=== PATIENT | male | born 1960 | race Caucasian/White ===

== ENCOUNTER 2017-03-06 21:45 | Emergency (ER) | payer OTHER ==
[~2017-03-06] VITALS: Ht 167.6 cm; Wt 113.0 kg
[~2017-03-06 21:45] MED LIST: AMBIEN5 MG PO; ASPIR 8181 M1 PO; CHOLESTEROL MED PO; COREG25 M1 PO; COUMADIN5 MG PO; COZAAR25 MG PO; COZAAR50 MG PO; FUROSEMIDE20 MG PO; GLIPIZIDE10 MG PO; LANTUS 10100 UNITS/ SC; LASIX40 MG PO; LIPITOR80 MG PO; LISINOPRIL40 MG PO; METFORMIN HCL1000 MG PO; METHOCARBAMOL750 MG PO; Muscle Relaxer PO; NEURONTIN100 MG PO; NITROSTAT0.4 MG SL; SIMVASTATIN10 MG PO; SPIRONOLACTONE25 MG PO; TYLENOL REGULA325 MG PO; XALATAN2.5 ML BOTH EYES
[2017-03-06 22:52] LABS: EOSINOPHIL (%) 0 % (0-5); HEMATOCRIT 31.2 % (38.0-50.0); IMMATURE GRANULOCYTE (%) 1.7 % (0.0-0.7); IMMATURE GRANULOCYTE COUNT 0.2 K/uL; INSTRUMENT ABS NEUTROPHIL CT 9.3 K/uL; LYMPHOCYTE COUNT 0.4 K/uL (1.0-2.8); MCH 29.8 PG (29.0-34.0); MCHC 30.4 G/DL (30.0-36.0); MCV 97.8 FL (86-99); MEAN PLAT.VOLUME 10.5 uM^3 (9.0-12.4); MONOCYTE (%) 4.1 % (3-12); MONOCYTE COUNT 0.4 K/uL (0-0.8); NEUTROPHIL (%) 89.8 % (45-76); NEUTROPHIL COUNT 9.3 K/uL (1.8-6.4); NRBC (%) 0.2 /100 WBC (0-0); PLATELET COUNT 405 K/uL (156-360); RBC DIS.WIDTH-CV 18.6 % (11.8-14.6); RBC DIS.WIDTH-SD 66.4 % (39-53); RED BLOOD COUNT 3.19 M/uL (4.00-5.50); WHITE BLOOD COUNT 10.3 K/uL (4.1-10.2)
[2017-03-06 23:01] LABS: CHLORIDE 104 mEq/L (99-109); POTASSIUM 5.7 mEq/L (3.7-5.4); SODIUM 135 mEq/L (136-147)
[2017-03-06 23:03] LABS: GLUCOSE 305 mg/dL (70-99)
[2017-03-06 23:04] LABS: ANION GAP 8 MEQ/L (2-14)
[2017-03-06 23:07] LABS: GFR ESTIMATE (CALCULATED) 39 mL/min/; UREA NITROGEN (BUN) 36 mg/dL (9-23)
[2017-03-06 23:12] LABS: TROP-I INTERPRETATION NEGATIVE; TROPONIN-I 0.06 ng/mL (0.0-0.30)
[2017-03-06 23:41] LABS: INTER. NORMALIZED RATIO 1.1; PROTHROMBIN TIME 11.7 SEC (10.2-12.9)
[2017-03-06 23:44] LABS: PTT 25.6 SEC (25-37)
[2017-03-07] MEDS ORDERED: PREDNISONE5 MG PO (00:32)
[2017-03-07] MEDS ORDERED: PROGRAF1 MG PO (00:32)
[2017-03-07] MEDS ORDERED: CELLCEPT250 MG PO (00:33)
[2017-03-07] MEDS ORDERED: DAPSONE100 MG PO (00:34)
[2017-03-07] MEDS ORDERED: VALCYTE450 MG PO (00:35)
[2017-03-07] MEDS ORDERED: UROMAG84.5 MG PO (00:36)
[2017-03-07] MEDS ORDERED: CALCIUM +D & M1 EACH PO (00:36)
[2017-03-07] MEDS ORDERED: PRAVASTATIN SOD80 MG PO (00:36)
[2017-03-07] MEDS ORDERED: APRESOLINE100 MG PO (00:37)
[2017-03-07] MEDS ORDERED: DOCUSIL100 MG PO (00:37)
[2017-03-07] MEDS ORDERED: IMDUR60 MG PO (00:38)
[2017-03-07] MEDS ORDERED: IMDUR30 MG PO (00:38)
[2017-03-07] MEDS ORDERED: MYCOSTATIN15 GM PO (00:38)
[2017-03-07] MEDS ORDERED: ACID REDUCER 1150 MG PO (00:39)
[2017-03-07] MEDS ORDERED: BASAGLAR K100 UNIT/1 SC (00:40)
[2017-03-07] MEDS ORDERED: APIDRA SOL100 UNIT/1 SC (00:40)
[2017-03-07] MEDS ORDERED: VITAMIN B-1100 MG PO (00:41)
[2017-03-07] MEDS ORDERED: METOCLOPRAMIDE10 MG PO (00:41)
[2017-03-07] MEDS ORDERED: CHEWABLE-VITE1 EACH PO (00:42)
[2017-03-07] MEDS ORDERED: ROXICODONE5 MG PO (00:42)
[2017-03-07] MEDS ORDERED: NORVASC2.5 MG PO (00:43)
[2017-03-07 03:44] VITALS: BP 152/90
== END 2017-03-07 04:19 | disposition short-term general hospital (02) ==
LOC: EME 21:45
PROVIDERS: Emergency Medicine
DX: I11.0 Hypertensive heart disease with heart failure (principal); I50.9 Heart failure, unspecified; Z94.1 Heart transplant status; N18.9 Chronic kidney disease, unspecified; R06.89 Other abnormalities of breathing; I25.2 Old myocardial infarction; E11.9 Type 2 diabetes mellitus without complications; Z79.4 Long term (current) use of insulin; Z79.82 Long term (current) use of aspirin; Z87.891 Personal history of nicotine dependence; Z86.73 Personal history of transient ischemic attack (TIA), and cerebral infarction without residual deficits
CPT/HCPCS: 71010; 80048; 83880; 84484; 85025; 85610; 85730; 93005; 99281; 99285; J1940